=== PATIENT | male | born 1945 | race Caucasian/White ===

== ENCOUNTER → 2017-04-12 | Outpatient (CLI) | payer MEDICARE ==
--- NOTE | 2017-04-12 14:00 | REP ---
MR LUMBAR SPINE WITHOUT CONTRAST: HISTORY: Back and left leg pain. Decreased signal intensity on T2-weighted images is present in the lumbar intervertebral discs. The discs are decreased in height. These findings are consistent with disc degeneration. There is no disc bulge or herniation at the L1-2 level. The L1 nerves exit the neural foramina without compression. A diffuse disc bulge is present at the L2-3 level. There is minimal compression of the thecal sac. There is hypertrophy of the posterior articulating facets. The L2 nerves exit the neural foramina without compression. A diffuse disc bulge is present at the L3-4 level. There is minimal compression of the thecal sac. There is hypertrophy of the posterior articulating facets. The L3 nerves exit the neural foramina without compression. A diffuse disc bulge is present at the L4-5 level. There is hypertrophy of the ligamenta flava and posterior articulating facets. There are 4 mm of grade 1 spondylolisthesis of L4 on L5. These findings produce moderate central canal stenosis. The L4 nerves exit the neural foramina without compression. A diffuse disc bulge and mild size left paracentral disc extrusion are present at the L5-S1 level. There is inferior migration of disc material. There is minimal compression of the thecal sac and left S1 nerve as it exits the thecal sac and the left S1 lateral recess. There is compression of the L5 nerves in the neural foramina. The conus medullaris is normal in appearance terminating at the level of the L1-2 intervertebral discs. Hemangiomas are present in the L1 and L2 vertebral bodies. Increased signal intensity on T2-weighted images is present in the endplates of the L3 through L5 vertebral bodies. This represents degenerative change. IMPRESSION: 1. Diffuse disc bulges at the L2-3 and L3-4 levels with minimal thecal sac compression. 2. Moderate central canal stenosis at the L3-4 level secondary to disc bulge, ligamentous and facet hypertrophy and grade 1 spondylolisthesis. 3. Diffuse disc bulge and mild size left paracentral disc extrusion at the L5-S1 level with minimal compression of the thecal sac and left S1 nerve as it exits the thecal sac and in the left S1 lateral recess. Signed by Arvind Burgos MD 04/12/2017 02:02 P
== END ==
LOC: M RAD 12:21
PROVIDERS: ATTEND Physician Assistant
DX: M48.061 Spinal stenosis, lumbar region without neurogenic claudication (principal)

== ENCOUNTER → 2017-08-12 | Outpatient (CLI) | payer MEDICARE | LOC: M CARPUL 10:10 | DX: J84.10 Pulmonary fibrosis, unspecified (principal) | CPT/HCPCS: 94010 ==

== ENCOUNTER → 2018-10-13 | Outpatient (CLI) | payer MEDICARE ==
[~2018-10-13] MED LIST: PROHANCE 279.3MG/ML 15ML VIAL (A9576) As Ordered ONE
--- NOTE | 2018-10-17 09:55 | REP ---
REPEAT DICTATION MRI abdomen and liver without and with IV gadolinium: HISTORY: Lesions in the liver and kidney. Abnormal ultrasound. Remote prior history of prostate carcinoma. Comparison sonography is the retrieved from [facility] dated September 09, 2018. This is reported as showing several liver lesions and a lesion in the left kidney. TECHNIQUE: Axial and coronal imaging planes utilized. T1- and T2-weighted sequences include spin-echo, fast spin echo, diffusion, gradient echo, in- and [id number]-[id number]-mracy, and dynamically acquired sequential post gadolinium enhanced images. The gadolinium enhancement dose is 12.8 mL of intravenous ProHance. MRI FINDINGS: Incidental note is made of a infrarenal abdominal aortic aneurysm measuring 3.0 cm in anteroposterior dimension. T2-weighted images of the liver confirm the presence of multiple T2 hyperintense focal liver lesions. The largest of these is centrally located in the right lobe measuring 2.5 cm in greatest diameter. Posterosuperiorly, there is a lesion at the dome of the diaphragm measuring 0.9 cm in greatest diameter. There are several tiny T2 hyperintense lesions scattered about the left and right lobe. On dynamically acquired post contrast images, several of these lesions show hypervascular enhancement. The largest lesion shows initial peripheral enhancement but the lesion fills in at 1 minute. There is no observable washout. There is also a peculiar nonenhancing lesion along the lateral capsule of the right lobe of the liver in a anteroposterior band-like orientation measuring approximately 8 mm in short axis dimension x 3.8 cm in anteroposterior span. There is slight thickening of the right adrenal gland. There is a peculiar infiltrative pattern surrounding the splenic capsule superiorly and laterally. This shows heterogeneous T2 signal intensity predominantly low T2. There are some vascular collateral channels in the splenic hilus. This pericapsular splenic disease is of uncertain significance. Pericapsular splenic disease does not show contrast enhancement. Question perisplenic proteinaceous fluid. No pancreatic mass is seen. No biliary or pancreatic ductal dilation is observed. There is a low T2 signal intensity upper pole mass in the left kidney. This measures 2.9 x 2.7 x 0.9 cm. There is no definite enhancement in the renal mass lesion. There is a multinodular and mottled pattern of abnormal bone marrow signal in multiple thoracic, lumbar spine vertebral bodies and in the visualized sacrum and pelvis. IMPRESSION: The constellation of findings of multiple liver mass lesions, an infiltrative pericapsular process around the spleen, a hypovascular mass in the upper pole left kidney, and a multinodular bone marrow disease pattern are suggestive of metastatic disease. CT scan of the abdomen and pelvis is recommended without and with IV contrast for further evaluation. I see that there is a remote prior history of prostate carcinoma. Ultrasound-guided needle biopsy of the liver lesion may be considered. Electronically Signed by Colby Zarate MD 10/17/2018 10:45 A
== END ==
LOC: M RAD 08:43
PROVIDERS: ATTEND Physician Assistant
DX: R16.0 Hepatomegaly, not elsewhere classified (principal); K76.9 Liver disease, unspecified; N28.89 Other specified disorders of kidney and ureter
CPT/HCPCS: 74183; A9576

== ENCOUNTER → 2019-05-12 | Outpatient (CLI) | payer MEDICARE ==
[~2019-05-12] MED LIST changes: +ASPI81TA85 PO; +ATIV1TAB7 PO; +IBUP-1022 PO; +METO1TAB87 PO; +MORP1TAB19 PO; +NEUR100C PO; +NICO7DIS24 TD; +OXYC-403 PO; +OXYC-424 PO; +OXYC-517 PO; +SENN8.6T58 PO; +SPIR-10 PO
--- NOTE | 2019-05-12 17:25 | REP ---
MRI brain: 05/12/2019. Indication: Metastatic renal cell carcinoma. Metastatic workup. Comparison: None. Technique: Multiplanar short and long TR sequences of the brain were performed including post-gadolinium images. Findings: There are no areas of restricted diffusion. There is a punctate suspected focus of pathologic gadolinium enhancement within the right frontal lobe best appreciated on the axial post gadolinium image/page number 192 and the coronal post gadolinium image/page 210. There is no significant associated edema. Multiple areas of elevated CT signal are scattered throughout the cerebral hemisphere white matter most consistent with sequelae of chronic microangiopathic ischemic disease. Diffuse volume loss is present. There is no hydrocephalus. The large intracranial flow voids are unremarkable. Impression: Tiny metastatic focus of the right m frontal lobe is not excluded as described. Volume loss and sequelae of chronic microangiopathic ischemic disease. Electronically Signed by Joe Lucas DO 05/12/2019 05:18 P
== END ==
LOC: M RAD 14:32
PROVIDERS: ATTEND Internal Medicine Medical Oncology
DX: C61 Malignant neoplasm of prostate (principal); I67.82 Cerebral ischemia
CPT/HCPCS: 70553; A9576

== ENCOUNTER 2019-05-26 13:26 | Inpatient (IN) | payer MEDICARE ==
[~2019-05-26] VITALS: Ht 167.6 cm; Wt 64.5 kg
[~2019-05-26 13:26] MED LIST changes: -PROHANCE 279.3MG/ML 15ML VIAL (A9576) As Ordered ONE
[2019-05-26] MEDS ORDERED: NALOXONE INJ 0.4 MG/1 ML VIAL (J2310) IV STA (14:14)
[2019-05-26] MEDS ORDERED: SODIUM CHLORIDE 0.9% INJ 10 ML SYR IV PRN (14:15)
[2019-05-26] MEDS ORDERED: ACETAMINOPHEN TAB 650MG DOSE (2X325MG) PO ONE (14:15)
--- NOTE | 2019-05-26 14:38 | REP ---
CHEST, SINGLE VIEW: There is no evidence of acute infiltrate. No pleural effusion is seen. The heart is normal in size. The mediastinal silhouette is unremarkable. The visualized osseous structures are intact. There is calcification of the thoracic aorta. IMPRESSION: No acute pulmonary disease. Electronically Signed by Narendra Modi MD 05/29/2019 09:33 A
[2019-05-26 14:43] LABS: BASO # 0.1 10^3/uL (0.0-0.2); BASO % 0.8 % (0.0-1.0); HEMATOCRIT 37.3 % (42.0-52.0); HEMOGLOBIN 11.7 g/dl (13.5-17.5); LYMPH # 0.4 10^3/uL (1.5-5.0); LYMPH % 5.9 % (24.0-44.0); MEAN CORPUSCULAR HEMOGLOBIN 26.5 pg (27.0-33.0); MEAN CORPUSCULAR HGB CONC 31.4 g/dl (32.0-36.5); MEAN CORPUSCULAR VOLUME 84.6 fl (80.0-96.0); MONO # 0.8 10^3/uL (0.0-0.8); MONO % 12.7 % (0.0-5.0); NEUTROPHILS % 79.3 % (36.0-66.0); PLATELET COUNT, AUTOMATED 386 10^3/uL (150-450); RED BLOOD COUNT 4.41 10^6/uL (4.30-6.10); WHITE BLOOD COUNT 6.2 10^3/uL (4.0-10.0)
[2019-05-26] MEDS ORDERED: LIDOCAINE 2% 5ML JELLY UROJET TOP ONE (15:15)
[2019-05-26 15:20] LABS: ALBUMIN 2.5 GM/DL (3.2-5.2); ALT/SGPT 43 U/L (12-78); BILIRUBIN,DIRECT 0.2 MG/DL (0.0-0.2); BILIRUBIN,TOTAL 0.4 MG/DL (0.2-1.0); BLOOD UREA NITROGEN 14 MG/DL (7-18); CARBON DIOXIDE LEVEL 27 MEQ/L (21-32); CHLORIDE LEVEL 101 MEQ/L (98-107); CK-MB VALUE MASS < 1.0 NG/ML (<3.6); CPK CREATINE PHOSPHOKINASE 32 U/L (39-308); CREATININE FOR GFR 0.76 MG/DL (0.70-1.30); GLOMERULAR FILTRATION RATE > 60.0 (>42); GLUCOSE, FASTING 157 MG/DL (70-100); MB/CK RELATIVE INDEX 3.12 (< OR =4); POTASSIUM SERUM 4.3 MEQ/L (3.5-5.1); SODIUM LEVEL 136 MEQ/L (136-145); THYROID STIMULATING HORMONE 0.682 uIU/ML (0.358-3.740); TOTAL PROTEIN 6.8 GM/DL (6.4-8.2); TROPONIN I < 0.02 NG/ML (< 0.10)
[2019-05-26 15:23] LABS: INFLUENZA A AMPLIFICATION NEGATIVE (NEGATIVE); INFLUENZA B AMPLIFICATION NEGATIVE (NEGATIVE)
--- NOTE | 2019-05-26 15:25 | REP ---
CT brain: 05/26/2019. Indication: Acute mental status change. Stroke. Comparison: MRI brain dated 05/12/2019. Technique: Unenhanced axial CT images of the brain were obtained from skull base to vertex. Findings: There is no acute intracranial hemorrhage, acute cortical infarction, mass effect or hydrocephalous. Volume loss and sequelae of chronic microangiopathic ischemic disease are redemonstrated. The tiny focus of superior right frontal lobe gadolinium enhancement is best demonstrated on MRI. Impression: No acute intracranial process. Electronically Signed by Joe Lucas DO 05/26/2019 03:17 P
[2019-05-26 15:33] LABS: APPEARANCE, URINE CLEAR (CLEAR); BACTERIA, URINE AUTO NEGATIVE (NEGATIVE); BILIRUBIN, URINE AUTO NEGATIVE (NEGATIVE); BLOOD, URINE BLOOD 1+ (NEGATIVE); COLOR, URINE AMBER (YELLOW); GLUCOSE, URINE (UA) AUTO NEGATIVE (NEGATIVE); KETONE, URINE AUTO NEGATIVE (NEGATIVE); LEUKOCYTE ESTERASE, URINE AUTO NEGATIVE (NEGATIVE); MUCUS, URINE SMALL (NEGATIVE); NITRITE, URINE AUTO NEGATIVE (NEGATIVE); PROTEIN, URINE AUTO 1+ mg/dL (NEGATIVE); RBC, URINE AUTO 1 /HPF (0-3); SPECIFIC GRAVITY URINE AUTO 1.023 (1.002-1.035); SQUAMOUS EPITHELIAL CELL UR AU 0 /HPF (0-6); WBC, URINE AUTO 0 /HPF (0-3)
[2019-05-26] MEDS ORDERED: SENNA 8.6 MG TAB (SENOKOT) PO PRN (16:45)
[2019-05-26] MEDS ORDERED: IBUPROFEN 600 MG TAB PO PRN (16:45)
--- NOTE | 2019-05-26 17:01 | HPEPDOC ---
[facility] Medical History & Physical Date of Admission May 26, 2019 Date of Service: May 26, 2019 Attending Physician: CT FLORES MD History and Physical CHIEF COMPLAINT: Altered mental status HISTORY OF PRESENT ILLNESS: 73-year-old male with past medical history of metastatic renal cell carcinoma diagnosed one month ago, coronary artery disease status post stent placement and hypertension presents from home with altered mental status. Patient underwent immunotherapy with Opdivo yesterday, first treatment, was doing well upon returning home. As per , he started becoming confused after midnight, she gave him his dose of morphine in the morning, upon waking up, he was more confused and altered, so she brought him to the hospital. Patient was found to be febrile in the hospital, no recent sick contacts, denies any cough, diarrhea, or urinary complaints from the patient. Patient is more alert now after receiving Narcan in the emergency department, without any complaints currently apart from chronic low back pain. He is unable to provide a reliable history due to the confusion. 10 point review of system is negative except for above PAST MEDICAL HISTORY: 1. Renal cell cancer. 2. Coronary artery disease. 3. Hypertension. PAST SURGICAL HISTORY: 1. Hernia repair. 2. Cardiac stent placement. SOCIAL HISTORY: Smoked for 60+ years, quit 1 month ago. Drinks 2 beers a day 5 days a week. Denies drug use FAMILY HISTORY: Noncontributory ALLERGIES: Please see below. HOME MEDICATIONS: Please see below. PHYSICAL EXAMINATION: VITAL SIGNS: Please see below. GENERAL: No distress HEENT: Normocephalic, atraumatic, moist mucous membranes NECK: Supple CARDIOVASCULAR EXAMINATION: S1, S2, no murmurs RESPIRATORY EXAMINATION: Clear to auscultation, no wheezing ABDOMINAL EXAMINATION: Soft, nontender, nondistended, positive bowel sounds EXTREMITIES: Range of motion intact SKIN: No rash NEUROLOGICAL EXAMINATION: Alert and oriented 3, no focal deficits PSYCHIATRIC EXAMINATION: Calm and cooperative LABORATORY DATA: See below. IMAGING: CT head and chest x-ray negative for acute pathology MICROBIOLOGY: Please see below. ASSESSMENT: 73-year-old male with past medical history of metastatic renal cell carcinoma diagnosed one month ago, treated Opdivo yesterday, presents to the hospital with altered mental status. PLAN: 1. Altered mental status. Possibly related to medication versus fever versus immunotherapy. Febrile in the ED, unknown etiology, no obvious source of infection, cultures pending, respiratory viral panel ordered, no need for antibiotic at this time. Questionable improvement after receiving Narcan, will monitor overnight. Unsure if fever and altered mental status related to Opdivo, will discuss case with Dr. Mae in the morning. 2. Coronary artery disease. Stable, continue home meds. (Aspirin, statin, beta vijay) 3. Hypertension. Continue home meds. (Metoprolol and spironolactone) DVT prophylaxis: Heparin subcutaneous GI prophylaxis: Not needed Vital Signs Vital Signs Date Time Temp Pulse Resp B/P (MAP) Pulse Ox O2 Delivery O2 Flow Rate FiO2 05/26/19 16:09 100.6 05/26/19 14:55 Room Air 05/26/19 13:43 85 18 139/91 99 Laboratory Data Labs 24H Laboratory Tests 2 05/26/19 14:22: Immature Granulocyte % (Auto) 1.3, Neutrophils (%) (Auto) 79.3H, Lymphocytes (%) (Auto) 5.9L, Monocytes (%) (Auto) 12.7H, Eosinophils (%) (Auto) 0.0, Basophils (%) (Auto) 0.8, Neutrophils # (Auto) 5.0, Lymphocytes # (Auto) 0.4L, Monocytes # (Auto) 0.8, Eosinophils # (Auto) 0.0, Basophils # (Auto) 0.1, Nucleated Red Blood Cells % (auto) 0.0, Anion Gap 8, Glomerular Filtration Rate > 60.0, Lactic Acid Level 1.1, Calcium Level 9.0, Total Bilirubin 0.4, Direct Bilirubin 0.2, Aspartate Amino Transf (AST/SGOT) 20, Alanine Aminotransferase (ALT/SGPT) 43, Alkaline Phosphatase 154H, Total Creatine Kinase 32L, Creatine Kinase MB < 1.0, Creatine Kinase MB Relative Index 3.12, Troponin I < 0.02, Total Protein 6.8, Albumin 2.5L, Albumin/Globulin Ratio 0.58L, Thyroid Stimulating Hormone (TSH) 0.682 05/26/19 14:36: Influenza Type A (RT-PCR) NEGATIVE, Influenza Type B (RT-PCR) NEGATIVE 05/26/19 15:22: Urine Color ESVIN, Urine Appearance CLEAR, Urine pH 5.0, Urine Specific [place] 1.023, Urine Protein 1+H, Urine Glucose (Auto)(UA) NEGATIVE, Urine Ketones (Auto) NEGATIVE, Urine Blood 1+H, Urine Nitrite NEGATIVE, Urine Bilirubin NEGATIVE, Urine Urobilinogen 4.0H, Urine Leukocyte Esterase (Auto) NEGATIVE, Urine WBC (Auto) 0, Urine RBC (Auto) 1, Urine Hyaline Casts (Auto) 0, Urine Bacteria (Auto) NEGATIVE, Urine Squamous Epithelial Cells 0, Urine Mucus (Auto) SMALL, Urine Sperm (Auto) CBC/BMP Laboratory Tests 05/26/19 14:22 Microbiology Microbiology 05/26/19 Urine Culture, Received Pending 05/26/19 Blood Culture, Received Pending 05/26/19 Blood Culture, Received Pending Home Medications Scheduled Aspirin (Aspir 81) 81 Mg Tablet.dr, 81 MG PO DAILY Metoprolol Tartrate (Metoprolol Tartrate) 25 Mg Tablet, 25 MG PO BID Morphine Sulfate (Morphine Sulfate Cr) 15 Mg Tablet.er, 15 MG PO BID Nicotine (Nicotine Patch) 7 Mg Patch.td24, 7 MG TD DAILY Spironolactone (Spironolactone) 25 Mg Tablet, 12.5 MG PO DAILY Scheduled PRN Ibuprofen (Ibuprofen) 600 Mg Tablet, 600 MG PO Q6H PRN for PAIN Oxycodone HCl (Oxycodone HCl) 5 Mg Tablet, 5 MG PO QID PRN for PAIN Sennosides (Senna) 8.6 Mg Tablet, 8.6 MG PO BID PRN for CONSTIPATION Allergies Coded Allergies: No Known Allergies (Unverified , 05/11/19) A-FIB/CHADSVASC A-FIB History Current/History of A-Fib/PAF?: No CT FLORES MD May 26, 2019 17:01
[2019-05-26 17:53] VITALS: BP 119/69
[2019-05-26] MEDS: METOPROLOL TART 25 MG TABLET PO SCH (20:27)
[2019-05-26] MEDS: HEPARIN SOD (PORCINE) 5000 UNITS/ML VIAL SC SCH (20:28)
[2019-05-26] MEDS ORDERED: MORPHINE 15 MG SA TAB PO SCH (21:00)
[2019-05-26 22:00] VITALS: BP 122/71
[2019-05-26] MEDS: oxyCODONE 5MG TAB PO PRN (23:13)
[2019-05-27] MEDS: oxyCODONE 5MG TAB PO PRN ×2 (05:16→11:43)
[2019-05-27 06:00] VITALS: BP 118/68
--- NOTE | 2019-05-27 06:35 | ECGEPIP ---
[facility] - ED Test Date: 2019-05-26 Pat Name: MAMTA ROSA Department: Room: - Gender: Male Research Laboratory Specialist: OLGA : [id number] Requested By: Chandana Choudhury Order Number: [id number] Reading MD: Robert Mello Measurements Intervals [place] Rate: 85 P: 66 NE: 158 QRS: 2 QRSD: 84 T: 64 QT: 341 QTc: 406 Interpretive Statements SINUS RHYTHM NONSPECIFIC ST T WAVE CHANGES NO PRIOR ECG FOR COMPARISON Electronically Signed on 05-27-2019 6:35:10 EST by Robert Mello
[2019-05-27 06:53] LABS: HEMATOCRIT 34.7 % (42.0-52.0); HEMOGLOBIN 10.8 g/dl (13.5-17.5); MEAN CORPUSCULAR HEMOGLOBIN 26.4 pg (27.0-33.0); MEAN CORPUSCULAR HGB CONC 31.1 g/dl (32.0-36.5); MEAN CORPUSCULAR VOLUME 84.8 fl (80.0-96.0); PLATELET COUNT, AUTOMATED 332 10^3/uL (150-450); RED BLOOD COUNT 4.09 10^6/uL (4.30-6.10); WHITE BLOOD COUNT 8.7 10^3/uL (4.0-10.0)
[2019-05-27 07:20] LABS: ALBUMIN 2.2 GM/DL (3.2-5.2); ALT/SGPT 50 U/L (12-78); BILIRUBIN,TOTAL 0.4 MG/DL (0.2-1.0); BLOOD UREA NITROGEN 13 MG/DL (7-18); CALCIUM LEVEL 8.4 MG/DL (8.8-10.2); CARBON DIOXIDE LEVEL 28 MEQ/L (21-32); CHLORIDE LEVEL 98 MEQ/L (98-107); CREATININE FOR GFR 0.72 MG/DL (0.70-1.30); GLOMERULAR FILTRATION RATE > 60.0 (>42); GLUCOSE, FASTING 152 MG/DL (70-100); POTASSIUM SERUM 3.6 MEQ/L (3.5-5.1); SODIUM LEVEL 132 MEQ/L (136-145); TOTAL PROTEIN 7.2 GM/DL (6.4-8.2)
[2019-05-27] MEDS ORDERED: NICOTINE 7 MG/24 HR TRANSDERMAL TD SCH (09:00)
[2019-05-27] MEDS ORDERED: ASPIRIN 81 MG ENTERIC TAB PO SCH (09:00)
[2019-05-27] MEDS ORDERED: SPIRONOLACTONE 12.5MG PER 1/2 TABLET PO SCH (09:00)
[2019-05-27 09:02] VITALS: BP 117/68
[2019-05-27] MEDS: METOPROLOL TART 25 MG TABLET PO SCH (09:02)
[2019-05-27] MEDS: HEPARIN SOD (PORCINE) 5000 UNITS/ML VIAL SC SCH (09:06)
--- NOTE | 2019-05-27 13:46 | DS.PDOC ---
Discharge Summary General Date of Admission May 26, 2019 at 16:45 Date of Discharge 05/27/2019 Attending Physician: CT FLORES MD Discharge Summary PROCEDURES PERFORMED DURING STAY: None. ADMITTING DIAGNOSES: 1. Altered mental status, fever DISCHARGE DIAGNOSES: 1. Altered mental status, fever. COMPLICATIONS/CHIEF COMPLAINT: Altered Mental Status Cad. HISTORY OF PRESENT ILLNESS: 73-year-old male with past medical history of renal cell carcinoma resented to the hospital after Opdivo infusion 48 hours ago with altered mental status. Patient was also noted to have low-grade temperature in the ED, he had received his MS Contin along with Percocet which the ED staff thought was the cause of his presentation. He received Narcan with mild improvement in altered mental status. Patient's MS Contin was held for 24 hours, improvement in mental status noted, no further episodes of fever. Patient did not display any signs of infection, denies cough, urinary issues or diarrhea. Blood cultures negative to date, pro-calcitonin negative, no obvious signs or source of infection. Patient is back to his baseline as per family, clinically and hemodynamic stable for discharge with outpatient follow-up. Patient and family advised to use breakthrough Percocet conservatively as it may cause his symptoms to recur. HOSPITAL COURSE: As above. DISCHARGE MEDICATIONS: Please see below. ALLERGIES: Please see below. PHYSICAL EXAMINATION: VITAL SIGNS: Please see below. GENERAL: No distress HEENT: Normocephalic, atraumatic, moist mucous membranes NECK: Supple CARDIOVASCULAR EXAMINATION: S1, S2, no murmurs RESPIRATORY EXAMINATION: Clear to auscultation, no wheezing ABDOMINAL EXAMINATION: Soft, nontender, nondistended, positive bowel sounds EXTREMITIES: Range of motion intact SKIN: No rash NEUROLOGICAL EXAMINATION: Alert and oriented 3, no focal deficits PSYCHIATRIC EXAMINATION: Calm and cooperative LABORATORY DATA: Please see below. PROGNOSIS: Fair ACTIVITY: As tolerated. DIET: Regular DISCHARGE PLAN: Patient will follow-up with oncologist and PCP 1-2 weeks DISPOSITION: Home. DISCHARGE INSTRUCTIONS: 1. As above. DISCHARGE CONDITION: Stable. TIME SPENT ON DISCHARGE: Greater than 27 minutes. Vital Signs/I&Os Vital Signs Date Time Temp Pulse Resp B/P (MAP) Pulse Ox O2 Delivery O2 Flow Rate FiO2 05/27/19 11:43 18 Room Air 05/27/19 09:02 71 117/68 05/27/19 06:00 97.8 96 I&O- Last 24 Hours up to 6 AM 05/27/19 06:00 Intake Total 600 ml Output Total 540 ml Balance 60 ml Laboratory Data Labs 24H Laboratory Tests 2 05/26/19 14:22: Immature Granulocyte % (Auto) 1.3, Neutrophils (%) (Auto) 79.3H, Lymphocytes (%) (Auto) 5.9L, Monocytes (%) (Auto) 12.7H, Eosinophils (%) (Auto) 0.0, Basophils (%) (Auto) 0.8, Neutrophils # (Auto) 5.0, Lymphocytes # (Auto) 0.4L, Monocytes # (Auto) 0.8, Eosinophils # (Auto) 0.0, Basophils # (Auto) 0.1, Nucleated Red Blood Cells % (auto) 0.0, Anion Gap 8, Glomerular Filtration Rate > 60.0, Lactic Acid Level 1.1, Calcium Level 9.0, Total Bilirubin 0.4, Direct Bilirubin 0.2, Aspartate Amino Transf (AST/SGOT) 20, Alanine Aminotransferase (ALT/SGPT) 43, Alkaline Phosphatase 154H, Total Creatine Kinase 32L, Creatine Kinase MB < 1.0, Creatine Kinase MB Relative Index 3.12, Troponin I < 0.02, Total Protein 6.8, Albumin 2.5L, Albumin/Globulin Ratio 0.58L, Procalcitonin 0.10, Thyroid Stimulating Hormone (TSH) 0.682 05/26/19 14:36: Influenza Type A (RT-PCR) NEGATIVE, Influenza Type B (RT-PCR) NEGATIVE 05/26/19 15:22: Urine Color ESVIN, Urine Appearance CLEAR, Urine pH 5.0, Urine Specific [place] 1.023, Urine Protein 1+H, Urine Glucose (Auto)(UA) NEGATIVE, Urine Ketones (Auto) NEGATIVE, Urine Blood 1+H, Urine Nitrite NEGATIVE, Urine Bilirubin NEGATIVE, Urine Urobilinogen 4.0H, Urine Leukocyte Esterase (Auto) NEGATIVE, Urine WBC (Auto) 0, Urine RBC (Auto) 1, Urine Hyaline Casts (Auto) 0, Urine Bacteria (Auto) NEGATIVE, Urine Squamous Epithelial Cells 0, Urine Mucus (Auto) SMALL, Urine Sperm (Auto) 05/27/19 06:25: Nucleated Red Blood Cells % (auto) 0.0, Anion Gap 6L, Glomerular Filtration Rate > 60.0, Calcium Level 8.4L, Total Bilirubin 0.4, Aspartate Amino Transf (AST/SGOT) 28, Alanine Aminotransferase (ALT/SGPT) 50, Alkaline Phosphatase 162H, Total Protein 7.2, Albumin 2.2L, Albumin/Globulin Ratio 0.44L, Magnesium Level 2.0 CBC/BMP Laboratory Tests 05/26/19 14:22 05/27/19 06:25 Microbiology Microbiology 05/26/19 Urine Culture, Received Pending 05/26/19 Blood Culture, Received Pending 05/26/19 Respiratory Virus Panel (PCR) (GEORGE), Received Pending 05/26/19 Blood Culture, Received Pending Discharge Medications Scheduled Aspirin (Aspir 81) 81 Mg Tablet.dr, 81 MG PO DAILY, (Reported) Metoprolol Tartrate (Metoprolol Tartrate) 25 Mg Tablet, 25 MG PO BID, (Reported) Morphine Sulfate (Morphine Sulfate Cr) 15 Mg Tablet.er, 15 MG PO BID, (Reported) Nicotine (Nicotine Patch) 7 Mg Patch.td24, 7 MG TD DAILY, (Reported) Spironolactone (Spironolactone) 25 Mg Tablet, 12.5 MG PO DAILY, (Reported) Scheduled PRN Ibuprofen (Ibuprofen) 600 Mg Tablet, 600 MG PO Q6H PRN for PAIN, (Reported) Oxycodone HCl (Oxycodone HCl) 5 Mg Tablet, 5 MG PO QID PRN for PAIN, (Reported) Sennosides (Senna) 8.6 Mg Tablet, 8.6 MG PO BID PRN for CONSTIPATION, (Reported) Allergies Coded Allergies: No Known Allergies (Unverified , 05/11/19) CT FLORES MD May 27, 2019 13:46
== END 2019-05-27 13:50 | disposition home or self-care (01) | DRG 948 ==
LOC: M ED 13:26 → M ED INP 16:45 → M MS5PR 17:47
PROVIDERS: ADMIT Internal Medicine; ATTEND Internal Medicine
DX: R41.82 Altered mental status, unspecified (principal); C64.9 Malignant neoplasm of unspecified kidney, except renal pelvis; T45.1X5A Adverse effect of antineoplastic and immunosuppressive drugs, initial encounter; I25.10 Atherosclerotic heart disease of native coronary artery without angina pectoris; Z95.5 Presence of coronary angioplasty implant and graft; I10 Essential (primary) hypertension; Z87.891 Personal history of nicotine dependence; F10.20 Alcohol dependence, uncomplicated; Z79.82 Long term (current) use of aspirin; Z79.899 Other long term (current) drug therapy; R50.9 Fever, unspecified; Z66 Do not resuscitate

== ENCOUNTER → 2019-08-02 | Outpatient (CLI) | payer MEDICARE ==
[~2019-08-02] MED LIST changes: +PROHANCE 279.3MG/ML 15ML VIAL (A9576) As Ordered ONE
--- NOTE | 2019-08-02 17:58 | REPVR ---
PROCEDURE INFORMATION: Exam: MR Head Without and With Contrast Exam date and time: 08/02/2019 5:43 PM Age: 73 years old Clinical indication: Condition or disease; History of cancer (specify primary cancer site): ; Patient HX: H/a HX renal CA; Additional info: Metastatic renal cell CA TECHNIQUE: Imaging protocol: MR of the head without and with intravenous contrast. Contrast material: PROHANCE; Contrast volume: 12 ml; Contrast route: 22G ANGIO; COMPARISON: MRI-Brain W/O FOLL BY WITH 05/12/2019 3:49 PM FINDINGS: Brain: No restricted diffusion is seen to suggest acute infarction. There is no acute intracranial hemorrhage, cerebral edema, or midline shift. Age-related cerebral and cerebellar substance loss is present. Scattered increased T2 and FLAIR signal within the periventricular and subcortical white matter is present. This is nonspecific but likely related to chronic microangiopathic ischemic change. No enhancing lesions were identified after the administration of contrast. Ventricles: No hydrocephalus. Bones/joints: There is decreased T1 signal within the C1 and C2 vertebra on the sagittal T1 weighted sequence. It is uncertain if this is artifactual or related to a marrow infiltrative process given the clinical history. No definite enhancing lesions in the C1 and C2 vertebra are seen after the administration of contrast to confirmed metastatic disease. Soft tissues: Unremarkable. Sinuses: Normal as visualized. No acute sinusitis. Mastoid air cells: Normal as visualized. No mastoid effusion. Orbits: The patient is likely status post bilateral cataract surgery. IMPRESSION: 1. No acute intracranial abnormality. 2. Chronic findings as discussed above. Electronically signed by: Stephon Spear On 08/02/2019 17:58:25 PM
== END ==
LOC: M RAD 14:50
PROVIDERS: ATTEND Internal Medicine Medical Oncology
DX: G93.9 Disorder of brain, unspecified (principal); C64.9 Malignant neoplasm of unspecified kidney, except renal pelvis
CPT/HCPCS: 70553; A9576

== ENCOUNTER → 2019-08-10 | Outpatient (CLI) | payer MEDICARE ==
[~2019-08-10] MED LIST changes: +GASTROGRAFIN SOLUTION 30ML (Q9963) As Ordered ONE; +ISOVUE-370 76% 100ML VIAL (Q9967) As Ordered ONE; -PROHANCE 279.3MG/ML 15ML VIAL (A9576) As Ordered ONE
--- NOTE | 2019-08-10 15:15 | REP ---
CT of the chest with IV contrast for follow up of renal cell carcinoma with metastases: There are no comparison chest CT studies. There are no lung masses or nodules. There are no infiltrates. No pleural effusions. There is no mediastinal, hilar or axillary lymphadenopathy. There are no infiltrates or pleural effusions. There are there are multiple skeletal lytic and blastic lesions involving the spinous process of the T1 vertebra, vertebral body of T2, lamina of T4, lamina of T5, posterior arch of the left eighth rib and a large lytic lesion in the T12 vertebral body. Suspect there are subtle blastic changes throughout the thoracic vertebral bodies. Impression: There are no lung masses, nodules, infiltrates or effusions. There is no adenopathy, infiltrate or pleural E few There are multiple skeletal metastases. Electronically Signed by Narendra Skelton MD 08/10/2019 03:07 P
--- NOTE | 2019-08-10 15:30 | REP ---
CT of the abdomen and pelvis with IV contrast and with bowel contrast for restaging of renal cell carcinoma with metastases. There are no comparison CT abdomen/pelvis studies. Dual phase scanning is performed during the portal venous phase of enhancement and during the delayed equilibrium phase of enhancement. The studies performed contiguously with the chest CT this same date. On the initial phase there is a 2.4 cm lesion in the medial segment of the hepatic left lobe shows nodular peripheral enhancement. This lesion fills in on the delayed images. This is compatible with an hepatic hemangioma. Posterolaterally in the dome of the liver. There is a 11 mm low-density lesion. There remains low density after IV contrast, likely a small hepatic cyst. The remainder of the hepatic parenchyma is unremarkable by CT. The gallbladder and pancreas are unremarkable. There is a small volume of fluid surrounding the spleen. The spleen is otherwise unremarkable. The adrenals are unremarkable. There is a 3.3 cm soft tissue mass in the upper pole of the left kidney containing calcifications. There is a 1.3 cm renal cortical cyst at the left renal lower pole. There is a 2 mm nonobstructive calculus in the left renal lower pole. There is no perinephric stranding on the right or the left. There is no hydronephrosis. There is a mild abdominal aortic aneurysm measuring 2.9 cm in diameter. No periaortic hematoma or adenopathy. The bowel and mesentery are unremarkable. There is no ascites. Pelvis: There is no ascites or adenopathy. There are surgical clips and cristine in the prostate. The bladder is unremarkable except for slight effacement from the prostate. There is a lytic lesion in the T12 vertebral body. There is a lytic lesion in the L4 vertebral body and in the L5 vertebral body. There are lytic lesions in the sacrum and in the right iliac wing and in the left ischium. I suspect there is a lytic lesion in the right hip lesser trochanter. Impression: There are lesions in the liver as described, not typical of hepatic metastases. There is a small fluid collection versus capsular thickening at the lateral margin of the spleen. There is no abdominal or pelvic adenopathy or ascites. There are surgical clips in the prostate. There are skeletal lytic and blastic lesions as described. Electronically Signed by Narendra Skelton MD 08/10/2019 03:22 P
== END ==
LOC: M RAD 12:14
PROVIDERS: ATTEND Internal Medicine Medical Oncology
DX: C64.9 Malignant neoplasm of unspecified kidney, except renal pelvis (principal); C79.51 Secondary malignant neoplasm of bone; K76.89 Other specified diseases of liver; N20.0 Calculus of kidney; N28.1 Cyst of kidney, acquired; I71.4 Abdominal aortic aneurysm, without rupture
CPT/HCPCS: 71260; 74177; Q9963; Q9967

== ENCOUNTER → 2019-09-18 | Outpatient (CLI) | payer MEDICARE ==
[~2019-09-18] MED LIST changes: -GASTROGRAFIN SOLUTION 30ML (Q9963) As Ordered ONE; -ISOVUE-370 76% 100ML VIAL (Q9967) As Ordered ONE; +PROHANCE 279.3MG/ML 15ML VIAL (A9576) As Ordered ONE
--- NOTE | 2019-09-18 19:27 | REPVR ---
PROCEDURE INFORMATION: Exam: MR Lumbar Spine Without and With Contrast. Exam date and time: 09/18/2019 6:48 PM Age: 73 years old Clinical indication: Condition or disease; Cancer, metastatic (secondary site lumbar); Additional info: Met renal cell CA, RO epidural lesion TECHNIQUE: Imaging protocol: Multiplanar magnetic resonance images of the lumbar spine without and with intravenous contrast. Contrast material: PROHANCE; Contrast volume: 12 ml; Contrast route: IV; COMPARISON: MRI-Spine, L.S. without con 04/12/2017 12:55 PM FINDINGS: Grade 1 anterolisthesis of L4 on L5 and mild retrolisthesis of L5 on S1. Multilevel disc desiccation and disc space narrowing. No evidence of discitis/osteomyelitis. There is multifocal pathologic marrow signal and enhancement compatible with osseous metastatic disease. There is mild ventral epidural extension of metastatic disease at S2. No epidural fluid collection. L1-L2: No significant central or foraminal stenosis. L2-L3: Mild disc bulge and mild bilateral facet joint arthropathy. No significant central canal stenosis. There is mild bilateral foraminal stenosis. L3-L4: Mild disc bulge and mild bilateral facet joint arthropathy. No significant central canal stenosis. There is mild bilateral foraminal stenosis. L4-L5: Ggmc-yl-[id number] disc bulge with moderate to severe facet joint arthropathy and posterior laxity of ligamentum flavum. There is ovth-rf-tyqfcibv central canal stenosis and moderate bilateral foraminal stenosis. L5-S1: Disc osteophyte complex with mild bilateral facet joint arthropathy. No significant central canal stenosis. Moderate to severe right and severe left foraminal stenosis. IMPRESSION: 1. Multifocal pathologic marrow signal and enhancement compatible with osseous metastatic disease. 2. Mild ventral epidural extension of metastatic disease at S2. 3. Degenerative findings as above greatest at L4-L5 where there is [id number] central canal stenosis. Electronically signed by: Trevor Howell On 09/18/2019 19:26:44 PM
== END ==
LOC: M RAD 17:29
PROVIDERS: ATTEND Internal Medicine Medical Oncology
DX: C20 Malignant neoplasm of rectum (principal); C79.51 Secondary malignant neoplasm of bone; M51.36 Other intervertebral disc degeneration, lumbar region; M48.061 Spinal stenosis, lumbar region without neurogenic claudication
CPT/HCPCS: 72158; A9576

== ENCOUNTER → 2019-09-19 | Outpatient (CLI) | payer MEDICARE ==
[~2019-09-19] MED LIST changes: -PROHANCE 279.3MG/ML 15ML VIAL (A9576) As Ordered ONE
--- NOTE | 2019-09-19 17:15 | REP ---
PET/CT: History: Monitoring response to treatment. Chemotherapy. Renal cell carcinoma. History of widely metastatic renal cell carcinoma with bone, adrenal, and asymptomatic right frontal lobe intracranial metastasis. Comparisons: No comparison PET-CT study. A comparison CT chest, abdomen and pelvis August 10, 2019. Comparison brain MRI study August 02, 2019. TECHNIQUE: 53 minutes following the intravenous injection of a 7.88 mCi dose of F-18 FDG, three-dimensional PET scintigraphy is acquired from the skull base to the proximal thighs. Triplanar noncontrast CT scanning is acquired through the same anatomic range for attenuation correction, and image registration with scan parameters optimized to minimize radiation exposure to the patient. PET scintigraphy and CT datasets were fused and displayed on a workstation with multiplanar and projection display capability. PET/CT Findings: Head and neck soft tissues are unremarkable. There is no evidence of abnormal soft tissue uptake within the thorax. No pulmonary parenchymal or hilar or mediastinal hypermetabolic uptake is seen. The left upper pole small renal mass shows very slightly increased uptake over normally physiologically metabolically active renal parenchyma, maximum SUV 3.64. No abnormal soft tissue uptake is seen within the abdomen and pelvis. There is multifocal and fairly extensive skeletal metastatic disease with hypermetabolic foci in the posterior elements of the lower cervical spine, 5.40, the right rib cage, the left posterior costovertebral junction in the mid thoracic spine, 12.59, the fourth lumbar vertebra, maximum SUV value 14.46. There is extensive hypermetabolic activity in the pelvis involving the sacrum with a large upper sacral lytic metastasis. Maximum standard uptake value 16.97. This metastasis occupies the first two sacral segments nearly from right to left in the upper sacrum. There are also three lesions in the right iliac bone, maximum standard uptake value ranging up to 15.68. One of these lesions is on the superior acetabular margin. Lastly, there is an eccentric lesion with cortical destruction in the region of the lesser trochanter of the right proximal femur. Impression: There is hypermetabolic skeletal metastatic disease as above. Notable sites include extensive involvement of the first two sacral segments and several metastases in the right iliac bone including a superior acetabular margin lesion. There is also involvement of the right proximal femur. There is a lesion in the L4 vertebral body. Electronically Signed by Colby Zarate MD 09/20/2019 07:47 A
== END ==
LOC: M PLARAD 11:27
PROVIDERS: ATTEND Internal Medicine Medical Oncology
DX: C64.2 Malignant neoplasm of left kidney, except renal pelvis (principal); C79.51 Secondary malignant neoplasm of bone
CPT/HCPCS: 78815; A9552

== ENCOUNTER → 2019-10-04 | Outpatient (CLI) | payer MEDICARE ==
[~2019-10-04] MED LIST changes: +DECA4TAB PO; +FENT12DI8 TD; +SUTE25CA PO
--- NOTE | 2019-10-04 15:21 | RADONC ---
RADIATION ONCOLOGY CONSULTATION NOTE DATE: 10/04/2019 CHART NUMBER: [id number] DIAGNOSIS: Renal cell carcinoma. STAGE: IV, widely metastatic. ECOG PERFORMANCE STATUS: 1. CONSULTATION NOTE: Mr. Sprague is a very pleasant 73-year-old white male with the diagnosis of widely metastatic progressive renal cell carcinoma who was referred to me for consideration of palliative radiation therapy to his sacral area for a large sacral lytic metastasis. 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 We treated the patient to his prostate and seminal vesicles and the patient received a total dose of 7920 cGy in 44 fractions of 180 cGy each to his prostate from 10/02/2010 through 11/06/2010. The patient lives in [place] which is a significant distance and did not return to follow up in our office after December 17, 2010. Since that time the patient had done well until he was seen at the [facility] Room with some low back pain in April of 2019. An MRI of the spine showed pelvic metastases. The patient was then transferred to [facility] where an MRI was done and showed diffuse skeletal metastasis at T1, T4, T5, T11, T12, L4, L5, S1 and S2 as well as the 7th left rib. CT scans of the abdomen and pelvis were done and revealed a 3.3 cm left adrenal mass as well as liver metastasis. On 05/01/2019 an L4 vertebral body biopsy was undertaken and pathology revealed metastatic renal cell carcinoma. 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 The patient was seen by medical oncology and has been undergoing systemic treatment. He has been receiving nivolumab every 4 weeks which was initiated on 05/25/2019. A PET scan was done on 09/19/2019 and showed multiple hypermetabolic skeletal metastatic sites. There was extensive involvement of the first two sacral segments and several metastasis in the right iliac bone as well as the superior acetabular area. There was also involvement of the right proximal femur in the L4 vertebral body. The patient was seen by his medical oncologist, Dr. Mae, who would changed his pain medication and referred him to me for consideration of palliative radiation therapy to the sacrum. The patient's past medical history is positive for hypertension, hyperlipidemia, CAD, status post stent in 2017 as well and his previous prostatic adenocarcinoma. ALLERGIES: The patient has no known drug allergies. SOCIAL HISTORY: The patient has a 50 pack-year smoking history. He drinks alcohol rarely. FAMILY HISTORY: The patient's family history is positive for a sister with colon cancer. A sister with thyroid cancer and another sister with lung cancer. His brother has prostate cancer. REVIEW OF SYSTEMS: The patient's review of systems is at this time negative for pain. He reports that his pain medications have remarkably improved his discomfort. He does have some residual knee discomfort. He reported that previous to this his major pain was in a shoulders and knees. They limited his range of motion but now he says his range of motion is good. His review of systems is otherwise noncontributory other than his physical limitations. He denies nausea, vomiting, fevers, chills, night sweats, diplopia, headaches, anxiety or depression, anorexia, weight loss, visual disturbances, chest pain, urinary or bowel difficulties, bone pain, or neurological problems. PHYSICAL EXAMINATION: Physical exam was deferred secondary to Covid-19 precautions. ASSESSMENT: I had a very lengthy discussion with this patient and his . Clearly he is a candidate for palliative radiation therapy and I have so informed him. I have discussed with the patient in detail the potential benefits as well as possible acute and chronic sequelae of external beam radiation therapy. We discussed logistics of treatment planning, simulation and subsequent fractionated daily radiation treatments. I offered to set this patient up for simulation and initiation of treatment planning to his sacral region. I have reproduced the patient's previous radiation records and this area has not received radiation in the past. We should be able to safely treat it. At this time the patient and his seem very hesitant about committing to a course of radiation therapy. They report that it is a 2-hour drive round trip and that 10 fractions of radiation would be somewhat prohibitive since he is not having any pain at present. I made clear to him that the pain medications most likely will not hold it in check for an extended period of time. I also explained to them the pain medication has its own side effects and difficulties and tolerance can develop. I have given the patient my cell phone number and office number and let him know that we are more than willing to start radiation at anytime if he so desires. I also explained to him that we are there and we are a [id number] service. He is aware that radiation will not extend his life but we are available to treat almost any or bone metastasis that are causing him pain and we should be able to do it without difficulty as long as they do not overlap with the previous radiated schultz. In summary I have given the patient our phone number and offered radiation when he so desires. The patient and his will think about this and see how he is doing over the next few weeks. Thank you for allowing us to participate in the care of this very pleasant gentleman. If I could be of any further assistance please feel free to contact me anytime. cc: Julissa Mae MD
== END ==
LOC: M ONCR 13:10
PROVIDERS: ATTEND Radiology Radiation Oncology
DX: C79.51 Secondary malignant neoplasm of bone (principal)

== ENCOUNTER → 2019-10-24 | Outpatient (CLI) | payer MEDICARE ==
[~2019-10-24] MED LIST changes: +FENT12DI8 TOP; +FENT1DIS14 TOP; +FLUC100T PO; +[UNRECOGNIZED DRUG - CODE] PO
[2019-10-24 11:51] LABS: BASO # 0.1 10^3/uL (0.0-0.2); BASO % 0.7 % (0.0-1.0); EOS % 0.5 % (0.0-3.0); HEMATOCRIT 40.4 % (42.0-52.0); HEMOGLOBIN 12.6 g/dl (13.5-17.5); LYMPH # 0.8 10^3/uL (1.5-5.0); LYMPH % 9.5 % (24.0-44.0); MEAN CORPUSCULAR HGB CONC 31.2 g/dl (32.0-36.5); MEAN CORPUSCULAR VOLUME 80.2 fl (80.0-96.0); MONO # 0.8 10^3/uL (0.0-0.8); NEUTROPHILS # 6.9 10^3/uL (1.5-8.5); NEUTROPHILS % 78.8 % (36.0-66.0); PLATELET COUNT, AUTOMATED 394 10^3/uL (150-450); RED BLOOD COUNT 5.04 10^6/uL (4.30-6.10); WHITE BLOOD COUNT 8.7 10^3/uL (4.0-10.0)
[2019-10-24 12:14] LABS: ALBUMIN 2.3 GM/DL (3.2-5.2); ALT/SGPT 33 U/L (12-78); BILIRUBIN,TOTAL 0.3 MG/DL (0.2-1.0); BLOOD UREA NITROGEN 17 MG/DL (7-18); CALCIUM LEVEL 9.3 MG/DL (8.8-10.2); CARBON DIOXIDE LEVEL 26 MEQ/L (21-32); CHLORIDE LEVEL 96 MEQ/L (98-107); CREATININE FOR GFR 0.92 MG/DL (0.70-1.30); GLOMERULAR FILTRATION RATE > 60.0 (>42); GLUCOSE, FASTING 282 MG/DL (70-100); LDH LACTATE DEHYDROGENASE 174 U/L (87-241); POTASSIUM SERUM 4.7 MEQ/L (3.5-5.1); SODIUM LEVEL 131 MEQ/L (136-145); TOTAL PROTEIN 6.7 GM/DL (6.4-8.2)
== END ==
LOC: M LAB 11:14
PROVIDERS: ATTEND Internal Medicine Medical Oncology
DX: C64.9 Malignant neoplasm of unspecified kidney, except renal pelvis (principal)